=== PATIENT | male | born 1955 | race Caucasian/White ===

== ENCOUNTER 2016-04-10 14:31 | Emergency (ER) | payer MEDICARE ==
[2016-04-10] MEDS ORDERED: IBUPROFEN 400 MG TABLET PO ONE (16:11)
--- NOTE | 2016-04-10 16:12 | ERNOTE ---
Lower Extremity HPI - Narrative Date of Service: 04/10/16 - General Lower Extremities Pain: ankle: left Time Seen by Provider: 04/10/16 16:05 Source: patient, family - Immun/Allergies/Home Medications Immunizations: IMMUNIZATION HX Immunizations Up to Date Yes History of Influenza Vaccine No Hx Pneumococcal Vaccination No Allergies/Adverse Reactions: Allergies Allergy/AdvReac Type Severity Reaction Status Date / Time No Known Allergies Allergy Verified 04/10/16 15:08 Home Medications: HOME MEDICATIONS Aspirin [Braxton Chewable Aspirin] 81 mg PO HS 04/16/14 [Last Taken 07/15/14 20: 00 81mg] Multivitamin [Multi-Vitamin Daily] 1 each PO DAILY 04/16/14 [Last Taken 08:00 1 tab] Benazepril HCl [Lotensin] 10 mg PO DAILY 07/13/14 [Last Taken 07/15/14 12:00 10mg] Furosemide [Lasix] 40 mg PO DAILY 07/13/14 [Last Taken 07/16/14 08:00 40mg] Phenytoin Sodium Extended [Dilantin] 200 mg PO BIDWM 07/13/14 [Last Taken 08:00 200mg] Potassium Chloride [Klor-Con 10] 10 meq PO BID 07/13/14 [Last Taken 07/16/14 08: 00 10meq] Simvastatin [Zocor] 40 mg PO HS 07/13/14 [Last Taken 07/15/14 20:00 40mg] lamoTRIgine [Lamictal] 100 mg PO BID 07/13/14 [Last Taken 07/16/14 08:00 100mg] Escitalopram Oxalate [Lexapro] 10 mg PO DAILY tab 07/15/14 [Last Taken 08:00 10mg] Ferrous Sulfate [Iron] 325 mg PO BID #60 capsule.er 07/15/14 [Last Taken Unknown ] Clindamycin HCl [Cleocin HCl] 300 mg PO QID #40 capsule 10/15/14 [Last Taken Unknown] - History of Present Illness Narrative: Pt. comes in with c/o L ankle pain that started three weeks ago after he fell off of a stool and got his foot stuck in the rungs of the stool. Pt. states that the pain resolved for a while but returned after he was stretching his legs and felt a pop in the same place a week ago. Review of Systems - Review of Systems Constitutional: Present: no symptoms reported. Absent: recent illness, fever, chills, weakness, fatigue, malaise EYE: Present: no symptoms reported ENT: Present: no symptoms reported. Absent: ear pain, nose pain, nose congestion, nasal drainage Respiratory: Present: no symptoms reported. Absent: shortness of breath, cough , wheezing Cardiology: Present: no symptoms reported. Absent: chest pain, palpitations, edema Gastrointestinal/Abdominal: Present: no symptoms reported. Absent: nausea, vomiting, diarrhea Genitourinary: Present: no symptoms reported Musculoskeletal: Present: joint pain - L anterior ankle. Absent: back pain Skin: Present: no symptoms reported. Absent: rash, change in color Neurological: Present: no symptoms reported. Absent: headache, dizziness/light- headedness, numbness, tingling All Other Systems: All systems neg except as marked - Patient's Past Medical History Patient History - Medical: Seizures Patient History - Cardiac/Respiratory: CVA/Stroke, Hypertension, Hyperlipidemia , Other Patient History - Cancer: No Hx of Cancer Patient History - Surgical Procedures: Colonoscopy, Other - Social History Living Situations: spouse Smoking Status: Never smoker Physical Exam - Physical Exam General Appearance: Present: wd/wn, alert, no apparent distress Eye Exam: Normal inspection: bilateral, PERRL: bilateral, EOMI: bilateral Ears, Nose, Throat: Present: normal ENT inspection, hearing grossly normal, normal pharynx Neck: Present: normal inspection, nontender. Absent: lymphadenopathy (R), lymphadenopathy (L) Respiratory: Present: no respiratory distress, normal breath sounds, no accessory muscle use, chest nontender, lungs clear Cardiovascular/Chest: Present: regular rate, rhythm, no murmur, normal peripheral pulses Gastrointestinal/Abdominal: Present: normal bowel sounds, nontender, nondistended, soft, no organomegaly Back Exam: Present: normal inspection, normal range of motion, no CVA tenderness , no vertebral tenderness Extremity Exam: Present: normal range of motion, pedal edema - +4 normal for pt , other - point tenderness over anterior ankle Neurological Exam: Present: alert, oriented, normal mood/affect, no motor/ sensory deficits, tailor men's ready to wear II-XII nml as tested, normal cerebellar test Skin Exam: Present: normal color, warm/dry. Absent: pallor, skin rash ED Progress - Vital Signs Patient's Vital Signs:: I have reviewed the patient's vital signs. Vital Signs: Vital Signs 04/10/16 15:03 Temperature 36.2 C L Pulse Rate 70 Respiratory 16 Rate Blood Pressure 150/86 O2 Sat by Pulse 96 Oximetry - X-Ray X-Ray #1 X-Ray: ankle Interpretation: Interp. by me X-ray Comments: ossification between distal tib/fib and periostitis overlying the medial malleolus. Concurrent with fracture will need to follow up with oprthopedics for outpatient MRI - Progress/Reassessment Chief Complaint: Ankle Injury/ Pain Progress:: Improved Departure Clinical Impression: Ankle fracture, left Qualifiers: Encounter type: initial encounter Fracture type: closed Qualified Code(s): S82.892A - Other fracture of left lower leg, initial encounter for closed fracture - Departure Disposition: Home self-care Condition: Good Instructions: Ankle Fracture, [id number] Additional Instructions: Please keep extremity elevated, no work until cleared by orthopedics, follow up with orthopedics by calling office tomorrow for first available appointment. Referrals: Andi Crane MD [Primary Care Provider] -
[2016-04-10] MEDS ORDERED: IBUPROFEN 400 MG TABLET ONE (16:14)
[2016-04-10 17:12] VITALS: BP 131/72
== END 2016-04-10 17:59 | disposition home or self-care (01) ==
LOC: ER 14:31
DX: S82.892A Other fracture of left lower leg, initial encounter for closed fracture (principal); W07.XXXA Fall from chair, initial encounter